=== PATIENT | female | born 1985 | race Two or more races ===

== ENCOUNTER 2024-10-24 12:14 | Emergency (ER) | payer OTHER ==
[~2024-10-24] VITALS: Ht 152.4 cm; Wt 65.8 kg
[2024-10-24 14:29] LABS: PH,URINE 6.5 (5.0-8.0); URINE APPEARANCE Cloudy; URINE BILIRRUBIN Negative (NEGATIVE); URINE BLOOD Trace; URINE COLOR Yellow; URINE GLUCOSE Negative (NEGATIVE); URINE LEUKOCYTE Large; URINE NITRATE Negative; URINE PROTEIN Negative (NEGATIVE); URINE UROBILINOGEN 0.2 E.U./dl
[2024-10-24 14:33] LABS: URINE BACTERIA 6313.2 uL (0.0-1933); URINE EPITHELIAL CELLS 57.3 uL (0.0-38.8); URINE RBC 2.9 uL (0.0-20.8); URINE WBC 190.6 uL (0.0-23.2)
[2024-10-24 14:42] LABS: BASO % 0.6 % (0.1-1.2); EOS # 0.11 (0.04-0.54); EOS % 0.9 % (0.7-7.0); HEMATOCRIT 35.2 % (34.1-44.9); HEMOGLOBIN 11.7 g/dL (11.2-15.7); LYMPH # 2.07 (1.18-3.74); LYMPH % 17.4 % (19.3-53.1); MEAN CORPUSCULAR HEMOGLOBIN 28.4 pg (25.6-32.2); MONO # 0.75 (0.24-0.82); MONO % 6.3 % (4.7-12.5); NEUT # 8.84 (1.56-6.13); NEUT % 74.4 % (34.0-71.1); PLATELET COUNT 302 K/uL (163-369); RED BLOOD COUNT 4.12 M/uL (3.93-5.22); RED CELL DISTRIBUTION WIDTH 13.8 % (11.6-14.4)
[2024-10-24 14:43] LABS: URINE CAST 0.44 uL (0.0-1.40); URINE KETONE 40 (NEGATIVE)
[2024-10-24 15:27] LABS: AMYLASE 58 U/L (25-115)
[2024-10-24 15:31] LABS: HCG QUANTITATIVE 24292 mUI/mL (1-3)
== END 2024-10-24 16:44 | disposition home or self-care (01) ==
LOC: ER 12:14
PROVIDERS: General Practice
DX: O20.8 Other hemorrhage in early pregnancy (principal); Z3A.01 Less than 8 weeks gestation of pregnancy